=== PATIENT | male | born 1970 | race Caucasian/White ===

== ENCOUNTER → 2016-10-23 | Outpatient (CLI) | payer BC ==
[~2016-10-23] MED LIST: Albuterol 0.083% 2.5 MG/3 ML Neb Soln NEB ONE
== END | disposition home or self-care (01) ==
LOC: MW.RT 13:54
PROVIDERS: ATTEND Family Medicine
DX: M25.512 Pain in left shoulder (principal)
CPT/HCPCS: 94060